=== PATIENT | male | born 1980 | race Caucasian/White ===

== ENCOUNTER 2019-12-20 00:45 | Emergency (ER) | payer SELFPAY ==
[2019-12-20 00:46] VITALS: PULSE 100; RESP 20; TEMP 36.7; O2SAT 94
--- NOTE | 2019-12-20 00:55 | ED.ASTHMA ---
HPI - Asthma General Chief Complaint: Asthma Stated Complaint: wheezing Time Seen by Provider: 12/20/19 00:48 Source: patient Mode of arrival: ambulatory Limitations: no limitations History of Present Illness HPI Narrative: A 39 y/o male presents to the ED with c/o asthma attack. Pt has a PMHx of asthma and states that he intermittently has issues with it. He recently just moved to [place], and he ran out of his inhaler and has not been able to refill it. Today he adds that he was in the cold air and it triggered and worsened his asthma. Pt reports SOB and wheezing, but denies rhinorrhea and sore throat. He is a smoker. complaint: asthma attack Onset (ago): hour(s) (Today) Context: ran out of meds Associated symptoms: other (SOB, wheezing) Asthma History: history of frequent attacks Related Data Allergies Allergy/AdvReac Type Severity Reaction Status Date / Time No Known Allergies Allergy Verified 12/20/19 01:01 Review of Systems Review of Systems: All systems reviewed & are unremarkable except as noted in HPI and below ENT: Denies nasal discharge and Denies sore throat Respiratory: Respiratory: Reports dyspnea and Reports wheezing [facility] Past Medical History Medical History (Updated 12/20/19 @ 01:32 by Kam Hayward DO) Asthma Surgical History Surgical History (Updated 12/20/19 @ 01:00 by Shari Wheeler) Surgical history unknown Social History Social History (Updated 12/20/19 @ 01:00 by Shari Wheeler) Smoking status: Current every day smoker Gender identity (if verbalized by the patient): Male Exam Narrative: Exam Narrative: APPEARANCE: No acute distress, nontoxic, resting in bed HEENT: Normocephalic, atraumatic OMM RESPIRATORY: No respiratory distress, wheezing throughout the bilateral lung vela, no rhonchi or rales CARDIOVASCULAR: Regular rate and rhythm without murmurs rubs or gallops. ABDOMINAL: Soft, nontender, nondistended, no rebound or guarding MUSCULOSKELETAl: Moves all extremities. No clubbing, cyanosis or edema. Bilateral calves soft and nontender NEURO: Awake and alert. Following commands, speech normal, no focal deficits SKIN:: Warm, dry. Normal Color PSYCHIATRIC: Normal affect/mood, Course Course Emergency Course: Following breathing treatment patient states he is feeling much better. Repeat lung exam clear to all station bilaterally. Patient states he does have a nebulizer machine at home but is out of albuterol for the nebulizer machine as well as inhaler Discussed with patient results of workup and diagnosis. Discussed need for follow-up with primary care, proper use of medication, and reasons to return to the emergency department. Patient understands and agrees to current treatment plan Vital Signs Vital signs: Vital Signs Temperature 98.1 F 12/20/19 00:46 Pulse Rate 100 12/20/19 00:46 Respiratory Rate 20 12/20/19 00:46 Pulse Oximetry 94 12/20/19 00:46 Temperature 98.1 F 12/20/19 00:46 Pulse Rate 77 12/20/19 01:20 Respiratory Rate 20 12/20/19 01:20 Pulse Oximetry 98 12/20/19 00:58 Discharge Plan Discharge Clinical Impression: Asthma with acute exacerbation Patient Disposition: Home, Self-Care Condition: Stable Instructions: Antibiotic Form, Asthma (ED) Additional Instructions: Return for increasing shortness of breath, fever or any other symptoms of concern Prescriptions: New prednisone 20 mg tablet 20 mg PO BID Qty: 8 RF: 0 albuterol sulfate 90 mcg/actuation HFA aerosol inhaler 2 puff INHALATION QID PRN (Reason: shortness of breath or wheezing) Qty: 6.7 RF: 0 albuterol sulfate 5 mg/mL solution for nebulization 5 mg INHALATION Q6H PRN (Reason: shortness of breath or wheezing) Qty: 20 RF: 0 Follow-up/Referrals: Nuha Ramírez MD [Physician] - (Follow-up in 1-2 days for further on-call physician treatment and evaluation) PHYSICIAN,CLIENT SERVICE AND CONSULTING MANAGER [Primary Care Provider] - Time of Disposition: 01:35
[2019-12-20 00:58] VITALS: O2SAT 98
[2019-12-20 01:10] VITALS: PULSE 90; RESP 20
[2019-12-20] MEDS: ALBUTEROL SULFATE NEB 2.5 MG/0.5 ML INH 5 MG INHALATION (01:12)
[2019-12-20] MEDS: predniSONE 20 MG TABLET 60 MG PO (01:12)
[2019-12-20] MEDS: IPRATROPIUM BR 0.02% INH SOLN 0.5 MG/2.5 ML VIAL INHALATION (01:13)
[2019-12-20 01:20] VITALS: PULSE 77; RESP 20
[2019-12-20 01:40] VITALS: BP 119/65; PULSE 97; RESP 15; O2SAT 93
== END 2019-12-20 01:40 | disposition home or self-care (01) ==
PROVIDERS: Emergency Provider Emergency Medicine
DX: J45.901 Unspecified asthma with (acute) exacerbation (principal); F17.200 Nicotine dependence, unspecified, uncomplicated
CPT/HCPCS: 94640; 99283; J7512

== ENCOUNTER 2019-12-27 16:43 | Emergency (ER) | payer SELFPAY ==
--- NOTE | ~2019-12-27 | XR_ITS ---
EXAMINATION: XR ankle LT min 3V DATE: 12/27/2019 17:03 INDICATION: Lateral left ankle pain post injury TECHNIQUE: Anteroposterior, oblique, mortise, and lateral views of the left ankle were obtained. COMPARISON: None. FINDINGS: There is an oblique fracture through the distal fibula with a fracture plane exiting medially at the level of the tibiotalar joint. There is one cortical width lateral displacement. No other fracture i dentified. Specifically the medial and posterior malleoli as well as the talar dome are intact. Ank le mortise remains congruent. Soft tissue swelling overlying the lateral malleolus. No ankle joint ef fusion. IMPRESSION: 1. Minimally displaced oblique fracture of the distal left fibula consistent with a Chawla type B inju ry pattern. Reviewed, dictated and finalized at location A. CRACKER OPERATOR IMPRESSION: 1. Minimally displaced oblique fracture of the distal left fibula consistent wi th a Chawla type B injury pattern.
[2019-12-27 16:53] VITALS: BP 130/84; PULSE 95; RESP 20; TEMP 37; O2SAT 96
--- NOTE | 2019-12-27 17:04 | ED.LOWEXIN ---
HPI - Extremity Injury (Lower) General Chief Complaint: Extremity Injury, Lower Stated Complaint: left ankle injury Time Seen by Provider: 12/27/19 17:05 Source: patient Mode of arrival: ambulatory Limitations: no limitations History of Present Illness HPI Narrative: Brandyn Aguirre is a 39 yo male with PMH of asthma who fell on a skateboard and twisted left ankle. Lateral swelling at the base of the ankle joint, able to move toes, some ecchymosis and a small abrasion on the medial side. Happened an hour ago Related Data Home Medications Medication Instructions Recorded Confirmed albuterol sulfate 12/27/19 prednisone 12/27/19 Allergies Allergy/AdvReac Type Severity Reaction Status Date / Time No Known Allergies Allergy Unverified 06/12/19 19:58 Review of Systems Review of Systems: Narrative: CONSTITUTIONAL: Denies fever, chills, sweats. EYES: Denies visual changes, redness, discharge. ENT: Denies rhinorrhea, congestion, sore throat, otalgia. CARDIOVASCULAR: Denies chest pain, palpitations, edema. RESPIRATORY: Denies dyspnea, wheezing, cough GASTROINTESTINAL: Denies abdominal pain, nausea, vomiting, diarrhea. GENITOURINARY: Denies dysuria, hematuria, abnormal discharge SKIN: Denies rash or itching. NEUROLOGIC: Denies numbness, or focal weakness. Extremity: Left ankle swelling and pain with bruising PSYCHIATRIC: Denies anxiety or depression. [facility] Family History Family History (Updated 12/27/19 @ 17:17 by Kristina Barrett CNP) Other No active medical problems Social History Social History Smoking status: Current every day smoker Alcohol intake: current Alcohol use details: Drinks more than socially Comments At time of signature, I agree with nursing past medical, surgical, social and family history. There is no relevant family history pertinent to the presenting complaint. Exam Narrative: Exam Narrative: GENERAL: This is a well-nourished, well-developed patient, in moderate distress. HEAD: normocephalic, atraumatic. Did not hit head EYES: Sclera clear/white. Vision is grossly intact. EARS: External ears normal, Hearing grossly intact. NOSE: External nose normal with no obvious nasal discharge, nares without redness, no rhinorrhea. THROAT: Mucous membranes moist, NECK: Neck supple, non-tender CARDIOVASCULAR: Regular rate and rhythm without murmurs, gallops, or rubs. RESPIRATORY: Clear to auscultation. Breath sounds equal bilaterally. No wheezes, rales, or rhonchi. GASTROINTESTINAL: Abdomen soft, SKIN: warm, intact with no suspicious lesions or rash, good texture and turgor. Abrasion medial side left ankle NEURO: awake, alert, and oriented to person, place and time. There were no obvious focal neurologic abnormalities. Steady gait EXTREMITIES: Limited range of motion of left ankle. Tender to touch. Swelling on lateral side of ankle. Skin warm, pedal pulse, good cap refill BACK: Nontender without deformity or crepitance. . Course Course Emergency Course: X-ray left ankle findings include a minimally displaced oblique fracture of distal left fibula Chawla type II Placed in OCL and on crutches, follow-up with orthopedic Vital Signs Vital signs: Vital Signs Temperature 98.6 F 12/27/19 16:53 Pulse Rate 95 12/27/19 16:53 Respiratory Rate 12/27/19 16:53 Blood Pressure 130/84 12/27/19 16:53 Pulse Oximetry 96 12/27/19 16:53 Temperature 98.6 F 12/27/19 16:53 Pulse Rate 95 12/27/19 16:53 Respiratory Rate 12/27/19 16:53 Blood Pressure 130/84 12/27/19 16:53 Pulse Oximetry 96 12/27/19 16:53 MDM - Extremity Injury (Lower) Differential Diagnosis Differential diagnosis: Likely ankle sprain and strain, fracture of toe, ankle fracture and other Discharge Plan Discharge Clinical Impression: Closed fracture of fibula Qualifiers: Encounter type: initial encounter Fibula location: distal F
== END 2019-12-27 17:59 | disposition home or self-care (01) ==
PROVIDERS: Emergency Provider Nurse Practitioner
DX: S82.832A Other fracture of upper and lower end of left fibula, initial encounter for closed fracture (principal); V00.131A Fall from skateboard, initial encounter; F17.200 Nicotine dependence, unspecified, uncomplicated; J45.909 Unspecified asthma, uncomplicated
CPT/HCPCS: 29515; 73610; 99213; 99214; G0463

== ENCOUNTER 2020-08-09 11:13 | Emergency (ER) | payer SELFPAY ==
[2020-08-09 11:22] VITALS: BP 137/88; PULSE 88; RESP 18; TEMP 36.4; O2SAT 99
--- NOTE | 2020-08-09 11:25 | ED.URI ---
HPI - URI/Sore Throat General Chief Complaint: Upper Respiratory Infection Stated Complaint: sore throat Source: patient Limitations: no limitations History of Present Illness HPI Narrative: The patient, previously mostly healthy smoker/drinker, presents with sore throat. Patient notes about 1/2-week history of somewhat left sore throat, measured fever to 100.2 associated radiating pain up to his left ear. No cough, loss of taste or smell, actual ear tenderness, sick contacts, N/V/D, recent travel, rash, S OB, sneezing/wheezing, CP. He had preceding right-sided throat discomfort the previous weekend which improved; he was requests refill of inhalers Related Data Allergies Allergy/AdvReac Type Severity Reaction Status Date / Time No Known Allergies Allergy Verified 08/09/20 11:27 Review of Systems Review of Systems: Narrative: General/Constitutional: No weight loss,REPORTS fever Eyes: N0: Redness,discharge Ears/Nose/Throat: No: Epistaxis,ear discharge Respiratory: Denies: Hemoptysis Gastrointestinal: No Vomiting, Bleeding-rectal Skin: No Lumps, eruption PMFSH Past Medical History Medical History (Updated 08/09/20 @ 11:25 by Ryan Mendez MD) Asthma Surgical History Surgical History (Updated 01/01/20 @ 10:57 by Sherri Matias) Surgical history unknown Family History Family History (System 01/01/20 @ 10:57 by Sherri Matias) Other No active medical problems Social History Social History (System 01/01/20 @ 10:57 by Sherri Matias) Smoking status: Current every day smoker Alcohol intake: current Gender identity (if verbalized by the patient): Male Comments At time of signature, agree with nursing past medical, surgical, social and family history. There is no relevant family history pertinent to the presenting complaint Exam Narrative: Exam Narrative: General Appearance: Well appearing,, Conjunctiva clear Nose: Rhinorrhea, Mucousal erythema Mouth/Throat: MM moist, Uvula midline, Pharyngeal erythema w/o exudate Neck: Supple, No adenopathy Respiratory: No respiratory distress, airway patent Musculoskeletal: Warm/dry Normal strength Neurological: A&O x3, Normal affect Course Vital Signs Vital signs: Vital Signs Temperature 97.5 F L 08/09/20 11:22 Pulse Rate 88 08/09/20 11:22 Respiratory Rate 18 08/09/20 11:22 Blood Pressure 137/88 08/09/20 11:22 Pulse Oximetry 99 08/09/20 11:22 Temperature 97.5 F L 08/09/20 11:22 Pulse Rate 88 08/09/20 11:22 Respiratory Rate 18 08/09/20 11:22 Blood Pressure 137/88 08/09/20 11:22 Pulse Oximetry 99 08/09/20 11:22 Discharge Plan Discharge Clinical Impression: Pharyngitis Qualifiers: Pharyngitis/tonsillitis etiology: unspecified etiology Qualified Code(s): J02.9 - Acute pharyngitis, unspecified Patient Disposition: Home, Self-Care Condition: Stable Instructions: Antibiotic Form, Pharyngitis (ED) Prescriptions: New azithromycin 250 mg tablet See Rx Instructions .ROUTE .COMPLEX Qty: 6 RF: 0 Lidocaine Viscous 2 % solution 5 ml MUCOUS MEM QID PRN (Reason: pain) Qty: 100 RF: 0 albuterol sulfate [Ventolin HFA] 90 mcg/actuation HFA aerosol inhaler 2 puff INHALATION QID PRN (Reason: shortness of breath or wheezing) Qty: 1 RF: 1 No Action albuterol sulfate 90 mcg/actuation HFA aerosol inhaler 2 puff INHALATION QID PRN (Reason: shortness of breath or wheezing) Qty: 6.7 RF: 0 Other Ambulatory Orders: SARS-CoV-2 RNA, Qual RT-PCR (Routine) Location: Determined by Patient Ordered By: Ryan Mendez Follow-up/Referrals: PHYSICIAN,CONCRETE PUMP OPERATOR HELPER [Primary Care Provider] -
== END 2020-08-09 11:40 | disposition home or self-care (01) ==
PROVIDERS: Emergency Provider Emergency Medicine
DX: J02.9 Acute pharyngitis, unspecified (principal); Z20.828 Contact with and (suspected) exposure to other viral communicable diseases; F17.200 Nicotine dependence, unspecified, uncomplicated; J45.909 Unspecified asthma, uncomplicated
CPT/HCPCS: 99213; G0463

== ENCOUNTER 2020-08-10 06:45 | Outpatient (NON) | payer OTHER, SELFPAY ==
[2020-08-10 19:00] LABS: SARS-CoV-2 RNA PCR Negative
== END 2020-08-10 06:46 ==
PROVIDERS: Visit Provider Emergency Medicine
DX: Z20.828 Contact with and (suspected) exposure to other viral communicable diseases (principal); J02.9 Acute pharyngitis, unspecified
CPT/HCPCS: 87635; C9803; U0003

== ENCOUNTER 2020-10-24 15:36 | Emergency (ER) | payer SELFPAY ==
--- NOTE | 2020-10-24 15:39 | ED.URI ---
HPI - URI/Sore Throat General Chief Complaint: Upper Respiratory Infection Stated Complaint: upper respiratory infection Time Seen by Provider: 10/24/20 15:39 Source: patient and RN notes reviewed Mode of arrival: ambulatory Limitations: no limitations History of Present Illness HPI Narrative: 40-year-old male presents concern for sore throat, fever, body aches. Reports he was treated with azithromycin approximately a month ago for the same symptoms, his symptoms never fully resolved. He reports he has been taking Tylenol ibuprofen. Reports he has and albuterol inhaler for which he needs a refill, denies current wheezing, cough, shortness of breath. MD elicited complaint: sore throat Related Data Allergies Allergy/AdvReac Type Severity Reaction Status Date / Time No Known Allergies Allergy Verified 08/09/20 11:27 Review of Systems Review of Systems: Narrative: CONSTITUTIONAL: Denies malaise, chills, sweats, or fever. EYES: Denies visual changes, redness, or discharge. ENT: Denies rhinorrhea, congestion, sinus pain, otalgia. Reports sore throat. CARDIOVASCULAR: Denies chest pain, palpitations, or edema. RESPIRATORY: Denies cough or dyspnea. GASTROINTESTINAL: Denies abdominal pain, nausea, vomiting, diarrhea SKIN: Denies rash or itching. MUSCULOSKELETAL: Denies myalgia. NEUROLOGIC: Denies headache. All systems reviewed & are unremarkable except as noted in HPI and below PMFSH Past Medical History Medical History (Updated 10/24/20 @ 15:53 by Sis Soliz NP) Asthma Surgical History Surgical History (Updated 01/01/20 @ 10:57 by Sherri Matias) Surgical history unknown Family History Family History (System 01/01/20 @ 10:57 by Sherri Matias) Other No active medical problems Social History Social History (System 01/01/20 @ 10:57 by Sherri Matias) Smoking status: Current every day smoker Alcohol intake: current Gender identity (if verbalized by the patient): Male Comments At time of signature, agree with nursing past medical, surgical, social and family history. There is no relevant family history pertinent to the presenting complaint Exam Narrative: Exam Narrative: GENERAL: Well-appearing, well-nourished, and in no acute distress. HEAD: Normocephalic EYES: PERRLA, conjunctivae clear ENT: Nares clear, turbinates pink, discharge. Mucous membranes moist. TM pearly skinner with sharp light reflex bilaterally; no tragal tenderness. Oropharynx erythematous without lesions. Tonsils enlarged with copious exudate, no drooling, no hoarseness, no trismus, uvula midline. NECK: Supple. No lymphadenopathy CHEST: Clear to auscultation, breath sounds equal. No wheezing, rhonchi, rales, or stridor. No respiratory distress, speaks in full sentences. HEART: Regular rate and rhythm. No murmur heard. SKIN: Warm, dry, no rash. NEURO: Alert and oriented x3. PSYCH: Normal mood and affect Course Course Emergency Course: Patient is aware of diagnosis, understands and agrees to treatment plan. Anticipatory guidance given. Patient agrees to follow-up as directed and is aware of reasons to seek care at the emergency department. Portions of this record may have been created with voice recognition software Vital Signs Vital signs: Vital Signs Temperature 98.9 F 10/24/20 15:42 Pulse Rate 89 10/24/20 15:42 Respiratory Rate 20 10/24/20 15:42 Blood Pressure 136/64 10/24/20 15:42 Pulse Oximetry 98 10/24/20 15:42 Temperature 98.9 F 10/24/20 15:42 Pulse Rate 89 10/24/20 15:42 Respiratory Rate 20 10/24/20 15:42 Blood Pressure 136/64 10/24/20 15:42 Pulse Oximetry 98 10/24/20 15:42 Reviewed. MDM - URI/Sore Throat MDM Narrative Medical decision making narrative: Differential diagnosis considered: Jose virus, strep pharyngitis, allergic rhinitis, upper respiratory tract infection, sinusitis, rhinosinusitis, nasopharyngitis. viral pharyngitis, otitis media, otitis externa
[2020-10-24 15:42] VITALS: BP 136/64; PULSE 89; RESP 20; TEMP 37.2; O2SAT 98
== END 2020-10-24 16:03 | disposition home or self-care (01) ==
PROVIDERS: Emergency Provider Nurse Practitioner
DX: J02.0 Streptococcal pharyngitis (principal); F17.200 Nicotine dependence, unspecified, uncomplicated; J45.909 Unspecified asthma, uncomplicated
CPT/HCPCS: 87804; 87880; 99213; G0463

== ENCOUNTER 2020-11-22 16:06 | Emergency (ER) | payer SELFPAY ==
--- NOTE | 2020-11-22 16:13 | ED.URI ---
HPI - URI/Sore Throat General Chief Complaint: Upper Respiratory Infection Stated Complaint: sore throat Time Seen by Provider: 11/22/20 16:13 Source: patient and RN notes reviewed Mode of arrival: ambulatory Limitations: no limitations History of Present Illness HPI Narrative: 40 yo male present to [facility] care with C/O sore throat. Had similar symptoms a month ago and 2 months ago. Has recently been treated for strep throat. Has not followed up with ENT or primary care provider. Denies fevers. Related Data Allergies Allergy/AdvReac Type Severity Reaction Status Date / Time No Known Allergies Allergy Verified 08/09/20 11:27 Review of Systems Review of Systems: Narrative: CONSTITUTIONAL: Denies fever, chills, or sweats. EYES: Denies visual changes, redness, or discharge. ENT: Denies rhinorrhea, congestion, or otalgia. Reports sore throat CARDIOVASCULAR: Denies chest pain, palpitations, or edema. RESPIRATORY: Denies cough or dyspnea. GASTROINTESTINAL: Denies abdominal pain, nausea, vomiting, or diarrhea. GENITOURINARY: Denies dysuria or hematuria. SKIN: Denies rash or itching. MUSCULOSKELETAL: Denies back pain, joint pain, or myalgia. NEUROLOGIC: Denies headache, numbness, or weakness. PSYCHIATRIC: Denies anxiety or depression. All other systems reviewed are negative, except as documented in HPI. PMFSH Past Medical History Medical History Asthma Surgical History Surgical History Surgical history unknown Family History Family History Other No active medical problems Social History Social History Smoking status: Current every day smoker Alcohol intake: current Gender identity (if verbalized by the patient): Male Comments At the time of my signature, I reviewed and agree with the nursing past medical, surgical, social, and family history. There is no relevant family history pertinent to the patient complaint. Exam Narrative: Exam Narrative: GENERAL: This is a well-nourished, well-developed patient, in no apparent distress. HEAD: normocephalic, atraumatic. EYES: PERRL. Sclera clear/white. Vision is grossly intact. EARS: External ears normal, auditory canals clear and without drainage, TMs normal without perforation. Hearing grossly intact. NOSE: External nose normal with no obvious nasal discharge, nares without redness, no rhinorrhea. THROAT: Mucous membranes moist. Posterior pharynx red. Oral tonsils +2 with large amount of exudate and erythema. NECK: Neck supple, non-tender with lymphadenopathy. no masses or thyromegaly. CARDIOVASCULAR: Regular rate and rhythm without murmurs, gallops, or rubs. RESPIRATORY: Clear to auscultation. Breath sounds equal bilaterally. No wheezes, rales, or rhonchi. GASTROINTESTINAL: Abdomen soft, non-tender, nondistended. SKIN: warm, intact with no suspicious lesions or rash, good texture and turgor. NEURO: awake, alert, and oriented to person, place and time. There were no obvious focal neurologic abnormalities. Course Vital Signs Vital signs: Vital Signs Temperature 98.3 F 11/22/20 16:22 Pulse Rate 101 H 11/22/20 16:22 Respiratory Rate 20 11/22/20 16:22 Blood Pressure 132/72 11/22/20 16:22 Pulse Oximetry 98 11/22/20 16:22 Temperature 98.3 F 11/22/20 16:22 Pulse Rate 101 H 11/22/20 16:22 Respiratory Rate 20 11/22/20 16:22 Blood Pressure 132/72 11/22/20 16:22 Pulse Oximetry 98 11/22/20 16:22 Reviewed, MDM - URI/Sore Throat Differential Diagnosis Differential diagnosis: Likely upper respiratory infection, otitis media, sinusitis, viral infection, bronchitis, influenza, pharyngitis and other (Strep throat) Lab Data Attestation: I reviewed the patient's lab results. Labs: Strep Screen Positive Group A Strep
[2020-11-22 16:22] VITALS: BP 132/72; PULSE 101; RESP 20; TEMP 36.8; O2SAT 98
== END 2020-11-22 16:29 | disposition home or self-care (01) ==
PROVIDERS: Emergency Provider Nurse Practitioner
DX: J02.0 Streptococcal pharyngitis (principal); J45.909 Unspecified asthma, uncomplicated
CPT/HCPCS: 87880; 99213; G0463

== ENCOUNTER 2021-01-13 21:02 | Emergency (ER) | payer SELFPAY ==
[2021-01-13 21:04] VITALS: BP 130/97; PULSE 105; RESP 16; TEMP 35.8; O2SAT 100
--- NOTE | 2021-01-13 21:24 | ED.GENADULT ---
HPI - General Adult General Chief complaint: Dental/Oral Stated complaint: tooth busted open Time Seen by Provider: 01/13/21 21:03 Source: patient Mode of arrival: ambulatory Limitations: no limitations History of Present Illness HPI narrative: Patient is a 40-year-old male who presents with tenderness to the right lower posterior molar noting aching pain with some drainage with history of dental infections patient has recently moved back to the area. Patient does not have a dentistry appointment established. Patient denies any fever chills nausea vomiting Related Data Home Medications Medication Instructions Recorded Confirmed albuterol sulfate INHALATION 01/13/21 Allergies Allergy/AdvReac Type Severity Reaction Status Date / Time No Known Allergies Allergy Verified 01/13/21 21:10 Review of Systems Review of Systems: All systems reviewed & are unremarkable except as noted in HPI and below PMFSH Past Medical History Medical History (Updated 01/13/21 @ 21:30 by Austyn Rojas PA-C) Asthma Surgical History Surgical History Surgical history unknown Family History Family History Other No active medical problems Social History Social History Smoking status: Current every day smoker Alcohol intake: current Gender identity (if verbalized by the patient): Male Exam Narrative: Exam Narrative: GENERAL: Well-appearing, well-nourished, and in no acute distress. HEAD: Normocephalic, atraumatic. EYES: PERRLA and EOMI. ENT: Nares clear, no rhinorrhea or epistaxis. Mucous membranes moist. Gross dental caries floor the mouth soft no space-occupying lesions. Uvula midline no trismus or drooling CHEST: Clear to auscultation. No respiratory distress. No wheezes rales or rhonchi HEART: Regular rate and rhythm. No murmur heard. Normal peripheral pulses. ABDOMEN: Soft, nontender, nondistended EXTREMITIES: Normal range of motion. No edema. SKIN: Warm, dry, no rash. NEURO: No focal deficits. Alert and oriented x3. Cranial nerves II through XII grossly intact PSYCH: Normal mood and affect. Course Course Emergency Course: Patient in the room in no distress aware of case findings treatment plan diagnosis Vital Signs Vital signs: Vital Signs Temperature 96.4 F L 01/13/21 21:04 Pulse Rate 105 H 01/13/21 21:04 Respiratory Rate 16 01/13/21 21:04 Blood Pressure 130/97 H 01/13/21 21:04 Pulse Oximetry 100 01/13/21 21:04 Temperature 96.4 F L 01/13/21 21:04 Pulse Rate 105 H 01/13/21 21:04 Respiratory Rate 16 01/13/21 21:04 Blood Pressure 130/97 H 01/13/21 21:04 Pulse Oximetry 100 01/13/21 21:04 Medical Decision Making MDM Narrative Medical decision making narrative: Paitents pain and complaint coupled with physical findings are consistant with dentalgia. There are no focal signs of space occupying lesions that are compromising to the ariway. The floor of the mouth is soft with no signs of Ludwigs Angina. Patient is without trismus or drooling and able to swallow secreations. Patient is felt appropriate for discharge home with dental follow up. Vital Signs Vital Signs: Vital Signs Temperature 96.4 F L 01/13/21 21:04 Pulse Rate 105 H 01/13/21 21:04 Respiratory Rate 16 01/13/21 21:04 Blood Pressure 130/97 H 01/13/21 21:04 Pulse Oximetry 100 01/13/21 21:04 Temperature 96.4 F L 01/13/21 21:04 Pulse Rate 105 H 01/13/21 21:04 Respiratory Rate 16 01/13/21 21:04 Blood Pressure 130/97 H 01/13/21 21:04 Pulse Oximetry 100 01/13/21 21:04 Discharge Plan Discharge Clinical Impression: Dental caries Patient Disposition: Home, Self-Care Condition: Stable Instructions: Antibiotic Form Additional Instructions: Follow-up with dentistry first thing tomorrow to set up for reevalua
== END 2021-01-13 21:45 | disposition home or self-care (01) ==
PROVIDERS: Emergency Provider Emergency Medicine
DX: K02.9 Dental caries, unspecified (principal); J45.909 Unspecified asthma, uncomplicated; F17.200 Nicotine dependence, unspecified, uncomplicated
CPT/HCPCS: 99283

== ENCOUNTER 2023-07-23 06:33 | Emergency (ER) | payer OTHER, SELFPAY ==
[2023-07-23] VITALS (9 sets, daily range): BP systolic 144–178; BP diastolic 93–118; PULSE 87–96; RESP 11–24; O2SAT 97–100
--- NOTE | ~2023-07-23 | CT_ITS ---
EXAMINATION: CT abdomen pelvis wo con DATE: 07/23/2023 07:30 INDICATION: Left lower quadrant abdominal pain. Hematuria. TECHNIQUE: Computed tomography (CT) of the abdomen and pelvis was performed without intravenous contr ast. Automated exposure control and iterative reconstruction technique were employed. The dose-length product was 1024.52 mGy-cm. COMPARISON: None. FINDINGS: The visualized portions of the lung bases demonstrate mild atelectasis. No pleural effusion . The heart size is normal. No pericardial effusion. There is diffuse hepatic steatosis. The gallblad esau, spleen, pancreas, adrenal glands, and right kidney are normal. There are 5 mm and 2 mm stones in left kidney. There is mild left hydronephrosis and hydroureter. There is a 2 mm stone in distal left ureter. There are bilateral inguinal hernias containing fat. There are no dilated loops of bowel. Th e appendix is normal. There are no pathologically enlarged lymph nodes. There is no free intraperiton eal fluid. There is mild lumbar spondylosis. IMPRESSION: 1. 2 mm stone in distal left ureter with mild left hydronephrosis and hydroureter. 2. Nonobstructing left kidney stones. 3. Diffuse hepatic steatosis. 4. Bilateral inguinal hernias containing fat. Reviewed, dictated and finalized at location A. IMPRESSION: 1. 2 mm stone in distal left ureter with mild left hydronephrosis and hydrouret er. 2. Nonobstructing left kidney stones. 3. Diffuse hepatic steatosis. 4. Bilateral inguinal hernias containing fat.
[2023-07-23 06:59] LABS: Basophils Absolute Auto 0.1 K/mm3 (0.0-0.1); Basophils Percent Auto 1.6 % (0.2-1.2); Eosinophils Absolute Auto 0.6 K/mm3 (0-0.3); Eosinophils Percent Auto 7.6 % (0-4.4); Hemoglobin 16.8 g/dL (14.0-18.0); Immature Granulocyte Percent A 1.3 % (0-0.5); Lymphocytes Absolute Auto 2.82 K/mm3 (0.9-3.2); Lymphocytes Percent Auto 36.9 % (18.3-44.2); Mean Corpuscular HGB Conc 34.3 g/dl (32-36); Mean Corpuscular Hemoglobin 34.7 pg (26-34); Mean Corpuscular Volume 101.2 fl (80-100); Mean Platelet Volume 9.6 fl (7.4-10.4); Monocytes Absolute Auto 1.1 K/mm3 (0.1-0.6); Monocytes Percent Auto 14.9 % (2.6-8.5); Neutrophils Absolute Auto 2.9 K/mm3 (1.3-6.7); Neutrophils Percent Auto 37.7 % (45.5-73.1); Platelet Count Result 248 k/mm3 (150-375); Red Blood Count 4.84 M/mm3 (4.6-6.20); Red Cell Distribution Width 13.7 % (11.5-14.5); White Blood Count 7.7 K/mm3 (4.5-10.0)
[2023-07-23 07:09] LABS: Alanine Aminotransferase 181 U/L (6-50); Albumin Level 4.3 g/dL (3.5-5.1); Alkaline Phosphatase 132 U/L (38-126); Anion Gap 7 mmol/L (8-16); Aspartate Amino Transferase 149 U/L (17-59); Bilirubin,Total 0.4 mg/dL (0.2-1.3); Blood Urea Nitrogen 11 mg/dL (9-20); Calcium 8.6 mg/dL (8.4-10.2); Carbon Dioxide 27 mmol/L (22-30); Chloride 103 mmol/L (98-107); Estimated CRCL calculation 118 ml/min; Estimated Glomerular Filt Rate > 60; Glucose 121 mg/dL (65-110); Lipase 156 U/L (23-300); Potassium 3.7 mmol/L (3.4-5.0); Sodium 137 mmol/L (137-145)
[2023-07-23 07:10] LABS: Appearance Urine Cloudy (Clear); Bacteria Urine None Seen /hpf; Bilirubin Urine 1+ (Negative); Blood Urine 3+ (Negative); Color Urine Dark Yellow (Yellow); Glucose Urine UA Negative (Negative); Ketones Urine Trace mg/dL (Negative); Leukocyte Esterase Ur 1+ LEU/UL (Negative); Need Manual Microscopic Reviewed; Nitrate Urine Negative (Negative); Protein Urine 2+ mg/dL (Negative); RBC Urine >100 /hpf (0-2); Specific Grav Ur 1.031 (1.001-1.035); Squamous Epithelial Cell Urine Occasional /hpf (Few); pH Urine 5.5 (5.0-9.0)
[2023-07-23 07:11] LABS: Add Urine Microscopic? YES
[2023-07-23] MEDS: HYDROmorphone HCL INJ (*CRX) 1 MG/ML SYR IV PUSH (07:11)
--- NOTE | 2023-07-23 07:11 | PC.NURSE ---
Patient care report given to ASHLEE Kirby. All questions answered at this time and care turned over to ASHLEE Kirby.
[2023-07-23] MEDS: ONDANSETRON INJ 4 MG/2 ML VIAL IV PUSH (07:12)
--- NOTE | 2023-07-23 07:16 | ED.GENADULT ---
HPI - General Adult General Chief complaint: Abdominal Pain Stated complaint: abdominal pain Time Seen by Provider: 07/23/23 06:55 History of Present Illness HPI narrative: 43-year-old male presented to the emergency department for evaluation of left flank and left lower quadrant pain that started at approximately 5 AM this morning. Patient has no prior history of kidney stones or diverticulitis. Patient denies any chest pain shortness of breath. Patient has not had any nausea or vomiting. Patient states he has had some dark-colored urine. Related Data Home Medications Medication Instructions Recorded Confirmed albuterol sulfate 90 mcg/actuation inhalation 01/13/21 aerosol inhaler Allergies Allergy/AdvReac Type Severity Reaction Status Date / Time No Known Allergies Allergy Verified 07/23/23 06:40 Review of Systems Review of Systems: All systems reviewed & are unremarkable except as noted in HPI and below [facility] Past Medical History Medical History (Updated 07/23/23 @ 09:00 by Aydin Chen MD) Asthma Surgical History Surgical History Surgical history unknown Family History Family History Other No active medical problems Social History Social History Smoking status: Current every day smoker Alcohol intake: current Alcohol use details: Drinks more than socially Gender identity (if verbalized by the patient): Male Exam Narrative: APPEARANCE: Distressed due to left flank and left lower quadrant pain HEAD: normocephalic, atraumatic. EYES: PERRLA/EOMI, conjunctivae clear. NOSE: Normal no drainage NECK: Supple. No adenopathy, no masses. RESPIRATORY: Airway patent, respirations nonlabored. Clear to auscultation bilaterally, no rales, rhonchi, wheezing. CARDIOVASCULAR: Regular rate and rhythm without murmurs rubs or gallops. ABDOMINAL: No reproducible left flank or left lower quadrant tenderness to palpation MUSCULOSKELETAL: Moves all extremities. Strength/ROM intact, No edema, No calf tenderness. NEURO: Alert. Cranial nerves II through XII intact. Grossly intact SKIN: Warm, dry. Normal Color Course Course Emergency Course: 43-year-old male presented ED for evaluation of left flank and left lower quadrant pain. Patient was afebrile with no leukocytosis and a stable hemoglobin. Patient's creatinine clearance is normal with moderate elevations of AST ALT and alk phos, no elevation in T. bili. Patient had no right upper quadrant tenderness to palpation. UA did have trace ketones blood and some white blood cells. Patient's UA and physical exam are concerning for kidney stones. CT scan without contrast was ordered to further evaluate. Patient was treated with IV fluids, IV Zofran and IV Dilaudid. CT scan did show a 2 mm nonobstructing ureteral calculi on the left distal ureter. Patient was updated on the results of the work-up and plan for treatment and follow-up for home. Patient was started on Flomax in the ED. Patient will be discharged home with Zofran, Flomax and [place] for pain control along with follow-up with urology. All questions concerns were addressed and patient and family were comfortable to plan with discharge and close follow-up. Vital Signs Vital signs: Vital Signs Pulse Rate 87 07/23/23 06:36 Respiratory Rate 22 H 07/23/23 06:36 Pulse Oximetry 99 07/23/23 06:36 Pulse Rate 92 07/23/23 09:11 Respiratory Rate 24 H 07/23/23 09:11 Blood Pressure 144/93 H 07/23/23 09:11 Pulse Oximetry 97 07/23/23 09:11 Oxygen Delivery Room Air 07/23/23 06:37 Medical Decision Making Differential Diagnosis Differential Diagnosis: Appendicitis, colitis, diverticulitis, urinary tract infection, urinary retention, ureteral calculi Vital Signs Vital Signs: Vital Signs Pulse Rate
--- NOTE | 2023-07-23 07:23 | PC.NURSE ---
Pt to CT via stretcher at this time
[2023-07-23] MEDS: KETOROLAC 15 MG/ML VIAL (*BKC) IV PUSH ×2 (07:50→09:06)
[2023-07-23] MEDS: TAMSULOSIN HCL 0.4 MG CAPSULE PO (08:31)
== END 2023-07-23 09:20 | disposition home or self-care (01) ==
PROVIDERS: Emergency Medicine; Emergency Provider Emergency Medicine
DX: N20.1 Calculus of ureter (principal); J45.909 Unspecified asthma, uncomplicated
CPT/HCPCS: 36415; 74176; 80053; 81001; 83690; 85025; 87086; 96374; 96375; 99284; A9270; J1170; J1885; J2405

== ENCOUNTER 2023-07-28 18:47 | Emergency (ER) | payer OTHER, SELFPAY ==
--- NOTE | ~2023-07-28 | CT_ITS ---
EXAMINATION: CT abdomen pelvis wo con DATE: 07/28/2023 21:36 INDICATION: L sided abd pain, recent stone TECHNIQUE: Computed tomography (CT) of the abdomen and pelvis was performed without intravenous contr ast. Automated exposure control and iterative reconstruction technique were employed. The dose-length product was 1033.81 mGy-cm. COMPARISON: 07/23/2023. FINDINGS: Lower thorax: Unremarkable Liver: Mild hepatomegaly. Diffuse fatty infiltration. Biliary/Gallbladder: Gallbladder is normal. No bile duct dilation. Pancreas: No mass or duct dilation. Spleen: Normal. Adrenals:No mass. Kidneys: Mild left perinephric stranding. 3 mm left lower pole nonobstructing calcification. Addition al punctate calcifications are noted in the right kidney. Mild pelviectasis, caliectasis, and uretere ctasis on the left. The right kidney is normal. GI tract: No small or large bowel dilation. Normal appendix. Mesentery/Peritoneum: No ascites, mass, or free air. Retroperitoneum: No mass. Pelvis: Mild wall thickening of the urinary bladder. Mild prostatomegaly with calcification. 2 mm alma cification in the left UVJ. Soft Tissues: Uncomplicated small fat-containing umbilical and bilateral inguinal hernias. Bones: No acute osseous finding. IMPRESSION: Mild hepatomegaly with steatosis. 2 mm left UVJ stone causing mild obstructive uropathy, not significantly changed since the prior stud y. Cystitis versus chronic urinary bladder wall thickening from outlet obstruction. Reviewed, dictated and finalized at location K. IMPRESSION: Mild hepatomegaly with steatosis. 2 mm left UVJ stone causing mild obstructive uropathy, not significantly change d since the prior study. Cystitis versus chronic urinary bladder wall thickening from outlet obstruction .
[2023-07-28 20:06] LABS: Basophils Absolute Auto 0.1 K/mm3 (0.0-0.1); Basophils Percent Auto 0.9 % (0.2-1.2); Eosinophils Absolute Auto 0.3 K/mm3 (0-0.3); Eosinophils Percent Auto 2.1 % (0-4.4); Hematocrit 47.6 % (42.0-52.0); Hemoglobin 16.6 g/dL (14.0-18.0); Immature Granulocyte Absolute 0.08 K/mm3 (0.00-0.031); Immature Granulocyte Percent A 0.7 % (0-0.5); Lymphocytes Absolute Auto 1.81 K/mm3 (0.9-3.2); Lymphocytes Percent Auto 14.7 % (18.3-44.2); Mean Corpuscular HGB Conc 34.9 g/dl (32-36); Mean Corpuscular Hemoglobin 34.2 pg (26-34); Mean Corpuscular Volume 98.1 fl (80-100); Mean Platelet Volume 9.5 fl (7.4-10.4); Monocytes Absolute Auto 1.4 K/mm3 (0.1-0.6); Monocytes Percent Auto 11.2 % (2.6-8.5); Neutrophils Absolute Auto 8.7 K/mm3 (1.3-6.7); Neutrophils Percent Auto 70.4 % (45.5-73.1); Platelet Count Result 257 k/mm3 (150-375); Red Blood Count 4.85 M/mm3 (4.6-6.20); Red Cell Distribution Width 13.7 % (11.5-14.5); White Blood Count 12.3 K/mm3 (4.5-10.0)
--- NOTE | 2023-07-28 20:12 | ED.MALEGU ---
HPI - Male Genitourinary General Chief complaint: Urogenital-Male Stated complaint: flank pain Time Seen by Provider: 07/28/23 19:15 Source: patient and old records reviewed Mode of arrival: ambulatory Limitations: no limitations History of Present Illness HPI Narrative: Patient is a 43-year-old male who presents ED with report of left-sided abdominal pain. Patient reports he was seen in the ED here on 07/23 and diagnosed with a 2 mm distal left-sided ureteral stone. He believes he passed this within the last day or 2 and saw it in the urine strainer. Today, patient began having pain in his left-sided abdomen and left lower back again. He tried taking pain medicine and ibuprofen at home without relief. He is unsure if he is passing another stone. He denies any nausea or vomiting, diarrhea, constipation, hematuria, dysuria, fevers. Related Data Home Medications Medication Instructions Recorded Confirmed albuterol sulfate 90 mcg/actuation inhalation 01/13/21 aerosol inhaler Allergies Allergy/AdvReac Type Severity Reaction Status Date / Time No Known Allergies Allergy Verified 07/23/23 06:40 Review of Systems Review of Systems: CONSTITUTIONAL: Denies fever, chills, or sweats. CARDIOVASCULAR: Denies chest pain. RESPIRATORY: Denies dyspnea. GASTROINTESTINAL: See HPI. GENITOURINARY: Denies dysuria or hematuria. MUSCULOSKELETAL: See HPI. NEUROLOGIC: Denies headache, numbness, or weakness. All systems reviewed & are unremarkable except as noted in HPI and below [facility] Past Medical History Medical History (Updated 07/29/23 @ 00:00 by Liam Le) Asthma Surgical History Surgical History Surgical history unknown Family History Family History Other No active medical problems Social History Social History Smoking status: Current every day smoker Alcohol intake: current Alcohol use details: Drinks more than socially Gender identity (if verbalized by the patient): Male Exam Narrative: GENERAL: Appears older than stated age, well-nourished, non-toxic, in no acute distress. HEAD: Normocephalic, atraumatic. NECK: Supple. No adenopathy, no masses. RESPIRATORY: Airway patent, respirations nonlabored. Coarse lung sounds bilaterally, occasional expiratory wheezing. No distress. CARDIOVASCULAR: Regular rate and rhythm without murmurs, rubs, or gallops. Radial pulses 2+ and equal bilaterally. ABDOMINAL: Soft, mild tenderness throughout left lower and lateral abdomen, nondistended, no hepatosplenomegaly. Normoactive BS. Positive CVA tenderness on left. MUSCULOSKELETAL: Moves all extremities. Strength/ROM intact without gross deformities. SKIN: Warm, dry, normal color. No rashes. NEURO: A&O X3. Speech clear. Cranial nerves II-XII grossly intact. Steady gait. No ataxic movements. PSYCHIATRIC: Appropriate mood and affect. Normal interaction. Course Vital Signs Vital signs: Vital Signs Pulse Rate 97 07/28/23 20:37 Respiratory Rate 17 07/28/23 20:37 Blood Pressure 162/100 H 07/28/23 20:37 Pulse Oximetry 97 07/28/23 20:37 Temperature 98.1 F 07/28/23 21:39 Pulse Rate 80 07/28/23 23:01 Respiratory Rate 17 07/28/23 23:01 Blood Pressure 170/100 H 07/28/23 23:01 Pulse Oximetry 100 07/28/23 23:01 MDM - Male Genitourinary MDM Narrative Medical decision making narrative: Patient presented to ED with left-sided abdominal pain, recently diagnosed with left distal ureteral stone which he believes he has since passed. No other significant associated symptoms at this time. Fluids and pain medication ordered. CBC with leukocytosis of 12.3. Per records, patient's white blood cell count was within normal range on 07/23. Creatinine today 1.1. Slightly increased from 0.9 on 07/23. Flu
[2023-07-28 20:16] LABS: Alanine Aminotransferase 123 U/L (6-50); Albumin Level 4.3 g/dL (3.5-5.1); Alkaline Phosphatase 135 U/L (38-126); Anion Gap 11 mmol/L (8-16); Aspartate Amino Transferase 84 U/L (17-59); Bilirubin,Total 0.6 mg/dL (0.2-1.3); Blood Urea Nitrogen 11 mg/dL (9-20); Calcium 8.2 mg/dL (8.4-10.2); Carbon Dioxide 22 mmol/L (22-30); Chloride 102 mmol/L (98-107); Estimated Glomerular Filt Rate > 60; Glucose 81 mg/dL (65-110); Potassium 3.8 mmol/L (3.4-5.0); Sodium 135 mmol/L (137-145)
[2023-07-28] MEDS: MORPHINE SULFATE (*CRX) 4 MG/ML INJ IV PUSH (20:25)
[2023-07-28] MEDS: SODIUM CHLORIDE 0.9% IV 1,000 ML 999 ML IV CONT ×2 (20:25→21:54)
[2023-07-28] MEDS: ONDANSETRON INJ 4 MG/2 ML VIAL IV PUSH (20:25)
[2023-07-28 20:37] VITALS: BP 162/100; PULSE 97; RESP 17; O2SAT 97
[2023-07-28 21:01] VITALS: BP 173/105
--- NOTE | 2023-07-28 21:16 | PC.NURSE ---
Patient taken to CT via w/c at this time.
[2023-07-28 21:39] VITALS: TEMP 36.7; O2SAT 97
[2023-07-28 22:09] LABS: Appearance Urine Cloudy (Clear); Bacteria Urine None Seen /hpf; Bilirubin Urine Negative (Negative); Blood Urine 1+ (Negative); Color Urine Yellow (Yellow); Glucose Urine UA Negative (Negative); Ketones Urine 2+ mg/dL (Negative); Leukocyte Esterase Ur Trace LEU/UL (Negative); Need Manual Microscopic Reviewed; Nitrate Urine Negative (Negative); Non Pathogenic Casts 0-2; Protein Urine Trace mg/dL (Negative); Squamous Epithelial Cell Urine None seen /hpf (Few); WBC Urine 21-50 /hpf; pH Urine 5.5 (5.0-9.0)
[2023-07-28 22:11] LABS: Add Urine Microscopic? YES; Specific Grav Ur 1.036 (1.001-1.035)
[2023-07-28 23:01] VITALS: BP 170/100; PULSE 80; RESP 17; O2SAT 100
[2023-07-28] MEDS: levoFLOXacin 750 MG TABLET PO (23:03)
[2023-07-28] MEDS: KETOROLAC 15 MG/ML VIAL (*BKC) IV PUSH (23:03)
== END 2023-07-28 23:10 | disposition home or self-care (01) ==
PROVIDERS: Emergency Provider Physician Assistant
DX: N13.9 Obstructive and reflux uropathy, unspecified (principal); N20.1 Calculus of ureter; R82.998 Other abnormal findings in urine; J45.909 Unspecified asthma, uncomplicated; F17.200 Nicotine dependence, unspecified, uncomplicated; K76.0 Fatty (change of) liver, not elsewhere classified; R93.41 Abnormal radiologic findings on diagnostic imaging of renal pelvis, ureter, or bladder
CPT/HCPCS: 36415; 74176; 80053; 81001; 85025; 87086; 96361; 96374; 96375; 99284; A9270; J1885; J2270; J2405; J7030

== ENCOUNTER 2023-11-29 11:41 | Emergency (ER) | payer OTHER, SELFPAY ==
[2023-11-29 11:49] VITALS: BP 149/97; PULSE 108; RESP 18; TEMP 36.4; O2SAT 100
--- NOTE | 2023-11-29 11:49 | ED.GENADULT ---
HPI - General Adult General Chief complaint: Upper Respiratory Infection Stated complaint: Cough, Chest Pain, Sore Throat Source: patient, RN notes reviewed and old records reviewed Mode of arrival: ambulatory Limitations: no limitations History of Present Illness HPI narrative: 43-year-old male patient presents to [facility] with complaints of cough, chest congestion that started on Sunday. Patient states has history of asthma patient using albuterol inhaler, and albuterol nebulizer. Patient denies shortness of breath, fever, body aches, nasal congestion. Patient states has Advair inhaler but he does not take because of the taste. MD complaint: cough Onset (ago): day(s) (3-4) Related Data Home Medications Medication Instructions Recorded Confirmed albuterol sulfate 90 mcg/actuation inhalation 01/13/21 aerosol inhaler Allergies Allergy/AdvReac Type Severity Reaction Status Date / Time No Known Allergies Allergy Verified 07/23/23 06:40 Review of Systems Constitutional: Constitutional: Reports no additional constitutional complaints, Denies body ache(s), Denies chills, Denies fatigue, Denies fever(s) and Denies headache(s) Eyes: Eyes: Reports no additional eye complaints and Denies blurry vision ENT: Reports system reviewed and no additional complaints, except as documented, Denies vertigo, Denies dizziness, Denies ear discharge, Denies otalgia, Denies facial pain, Denies headache(s), Denies nasal congestion, Denies nasal discharge, Denies sinus pain, Denies sinus pressure and Denies sore throat Cardiovascular: Cardiovascular: Reports no additional cardiovascular complaints, Denies chest pain, Denies chest pain at rest, Denies rapid heart rate and Denies dyspnea Respiratory: Respiratory: Reports no additional respiratory complaints, Reports chest congestion, Reports cough, Denies pain on inspiration, Denies pain with cough and Denies dyspnea Gastrointestinal: Gastrointestinal: Denies abdominal pain, Denies diarrhea, Denies nausea and Denies vomiting Integumentary/Breasts: Skin/Breast: Denies rash Neurologic: Reports system reviewed and no additional complaints, except as documented, Denies vertigo, Denies dizziness and Denies headache(s) Endocrine: Endocrine: Denies fatigue [facility] Past Medical History Medical History (Updated 11/29/23 @ 12:04 by Mary Alice Diop APRN) Asthma Surgical History Surgical History Surgical history unknown Family History Family History Other No active medical problems Social History Social History Smoking status: Current every day smoker Alcohol intake: current Alcohol use details: Drinks more than socially Gender identity (if verbalized by the patient): Male Comments At the time of my signature, I reviewed and agree with the nursing past medical, surgical, social, and family history. There is no relevant family history pertinent to the patient complaint. Exam Const: General: cooperative, healthy appearing, no acute distress and well nourished Nutritional Appearance: well nourished Orientation/consciousness: patient oriented x3 Limitations: no limitations HENMT: Head: normal to inspection and normocephalic Ears: external ears normal, TM's normal bilaterally, mastoids normal and Abnormal EAC present Face/Nose/Sinus: normal facial exam Face and sinus: normal facial exam Mouth: Yes Normal oral and palatal mucosa present, Yes oropharynx normal and Yes moist mucous membranes Throat: tonsils normal, uvula midline, posterior oropharynx abnormal and no uvular edema Eyes: General: appearance normal, both eyes and all related structures Sclera: sclerae normal Pupils: Equal, round and reactive pupils present Resp: Effort & Inspection: normal respiratory effort, able to speak in complete senten
== END 2023-11-29 12:16 | disposition home or self-care (01) ==
PROVIDERS: Emergency Provider Registered Nurse
DX: J45.21 Mild intermittent asthma with (acute) exacerbation (principal); F17.200 Nicotine dependence, unspecified, uncomplicated
CPT/HCPCS: 87426; 87804; 99213; G0463

== ENCOUNTER 2023-12-04 16:16 | Emergency (ER) | payer OTHER, SELFPAY ==
--- NOTE | ~2023-12-04 | CT_ITS ---
EXAMINATION: CT lumbar spine wo con DATE: 12/04/2023 17:33 INDICATION: low back pain, bilateral lower extremity pain . TECHNIQUE: Computed tomography (CT) of the lumbar spine was performed without intravenous contrast. A utomated exposure control and iterative reconstruction technique were employed. The dose-length produ ct was 1361.89 mGy-cm. COMPARISON: CT abdomen and pelvis 07/28/2023. FINDINGS: 4 nonrib-bearing lumbar-type vertebral bodies, with sacralization of L5. Pedicles intact. N ormal vertebral body alignment. Vertebral body heights preserved. Multilevel mild degenerative disc d isease and facet arthropathy. No severe central canal or neural foraminal narrowing. 8 mm nonobstruct ing left lower pole nephrolith. Fatty infiltration in the liver. IMPRESSION: No acute fracture or traumatic malalignment in the lumbar spine. Hepatic steatosis. Left nephrolithiasis. Reviewed, dictated and finalized at location K. [employer]
[2023-12-04 16:37] VITALS: BP 152/87; PULSE 108; RESP 20; TEMP 36.8; O2SAT 100
--- NOTE | 2023-12-04 17:10 | ED.GENADULT ---
HPI - General Adult General Chief complaint: Extremity Injury, Lower <DARREN Mascorro Last Filed: 12/04/23 18:11> Stated complaint: bilateral knee pain, back pain <Modesto Rodgers PA-C - Last Filed: 12/04/23 18:11> Time Seen by Provider: 12/04/23 17:00 <Modesto Rodgers PA-C - Last Filed: 12/04/23 18:11> Focused HPI: This is a 43-year-old male who presents to the ED with chief complaint of multiple joint pains beginning today. Reports this morning around 1:00 a.m. he woke up with bilateral knee pain. He then started to have bilateral ankle pain this morning. This afternoon he started to developed lower back pain and stiffness. States he had a chest cold last week but otherwise has been feeling all right. Denies fevers, chills, nausea, vomiting, chronic steroid use or immunosuppressive condition. Denies IV drug use. States the area is tender these pain worsens whenever he is walking or standing. Denies numbness or weakness. GENERAL: Well-appearing, well-nourished, and in no acute distress. HEAD: Normocephalic, atraumatic. CHEST: Clear to auscultation. No respiratory distress. HEART: Regular rate and rhythm. NEURO: Alert and oriented x3. Patient screened in triage and initial orders placed. Additional care and disposition to be based upon diagnostic testing and treatment. <Modesto Rodgers PA-C - Last Filed: 12/04/23 18:11> Source: patient <DARREN Mascorro Last Filed: 12/04/23 18:11> Mode of arrival: ambulatory <DARREN Mascorro Last Filed: 12/04/23 18:11> Limitations: no limitations <DARREN Mascorro Last Filed: 12/04/23 18:11> Related Data Home medications: Home Medications Medication Instructions Recorded Confirmed albuterol sulfate 90 mcg/actuation inhalation 01/13/21 aerosol inhaler <DARREN Mascorro Last Filed: 12/04/23 18:11> Allergies/adverse reactions: Allergies Allergy/AdvReac Type Severity Reaction Status Date / Time No Known Allergies Allergy Verified 12/04/23 16:42 <Modesto Rodgers PA-C - Last Filed: 12/04/23 18:11> Review of Systems Review of Systems: All systems reviewed & are unremarkable except as noted in HPI and below <Vannessa Beltran MD - Last Filed: 12/09/23 12:08> [facility] Past Medical History Medical History: Medical History (Updated 12/05/23 @ 00:02 by Liam Le) Asthma <Modesto Rodgers PA-C - Last Filed: 12/04/23 18:11> Surgical History Surgical History: Surgical History Surgical history unknown <Modesto Rodgers PA-C - Last Filed: 12/04/23 18:11> Family History Family History: Family History Other No active medical problems <Modesto Rodgers PA-C - Last Filed: 12/04/23 18:11> Social History Social History: Social History Smoking status: Current every day smoker Alcohol intake: current Alcohol use details: Drinks more than socially Gender identity (if verbalized by the patient): Male <Modesto Rodgers PA-C - Last Filed: 12/04/23 18:11> Exam Narrative: GENERAL: nontoxic, intermittently agitated 2/2 pain HEAD: Normocephalic, atraumatic. EYES: PERRLA and EOMI. ENT: Nares clear, no rhinorrhea or epistaxis. Mucous membranes moist. NECK/BACK: Supple. no midline tenderness CHEST: No respiratory distress. HEART: Regular rate and rhythm. EXTREMITIES: Normal range of motion. no swelling or erythema or tenderness of knee or ankle joints, ambulating w/o difficulty SKIN: Warm, dry, no rash. NEURO: No focal deficits. Alert and oriented x3. PSYCH: Normal mood and affect. <Vannessa Beltran MD - Last Filed: 12/09/23 12:08> Course Vital Signs Vital signs: Vital Signs Temperature 98.3 F 12/04/23 16:37 Pulse Rate 108 H 12/04/23 16:37 Respiratory Rate
[2023-12-04 17:26] LABS: Hematocrit 39.4 % (42.0-52.0); Hemoglobin 13.5 g/dL (14.0-18.0); Mean Corpuscular HGB Conc 34.3 g/dl (32-36); Mean Corpuscular Hemoglobin 35.1 pg (26-34); Mean Corpuscular Volume 102.3 fl (80-100); Mean Platelet Volume 9.2 fl (7.4-10.4); Platelet Count Result 365 k/mm3 (150-375); Red Blood Count 3.85 M/mm3 (4.6-6.20); Red Cell Distribution Width 14.7 % (11.5-14.5); White Blood Count 13.3 K/mm3 (4.5-10.0)
[2023-12-04 17:36] LABS: Alanine Aminotransferase 315 U/L (6-50); Alkaline Phosphatase 142 U/L (38-126); Anion Gap 8 mmol/L (8-16); Aspartate Amino Transferase 372 U/L (17-59); Bilirubin,Total 0.5 mg/dL (0.2-1.3); Blood Urea Nitrogen 11 mg/dL (9-20); Calcium 9.3 mg/dL (8.4-10.2); Carbon Dioxide 27 mmol/L (22-30); Chloride 101 mmol/L (98-107); Estimated CRCL calculation 136 ml/min; Estimated Glomerular Filt Rate > 60; Glucose 129 mg/dL (65-110); Potassium 4.1 mmol/L (3.4-5.0); Sodium 136 mmol/L (137-145)
[2023-12-04 17:42] LABS: Band Neutrophils Percent 1 % (0-6); Lymphocytes Absolute Manual 1.86 K/mm3 (1.1-4.5); Lymphocytes Percent Manual 14 % (18-44); Metamyelocytes Percent 2 %; Monocytes Absolute Manual 0.53 K/mm3 (0.1-0.90); Monocytes Percent Manual 4 % (3-9); Myelocytes Percent 1 %; Neutrophils Percent Manual 78 % (46-73); Total Cells Counted 100
[2023-12-04 17:43] LABS: Anisocytosis 1+ (NORMAL); Platelet Estimate Adequate (Adequate)
[2023-12-04 17:44] LABS: Schistocytes None Seen (NORMAL); Stomatocytes 1+ (NORMAL)
[2023-12-04 18:48] LABS: Erythrocyte Sedimentation Rate 16 mm/hr (0-20)
[2023-12-04] MEDS: oxyCODONE/ACETAMINOPHEN (*CRX) 5-325 MG TABLET 1 TABLET PO (20:14)
[2023-12-04] MEDS: KETOROLAC 30 MG/ML VIAL (*BKC) IM (20:15)
== END 2023-12-04 22:00 | disposition home or self-care (01) ==
PROVIDERS: Physician Assistant; Emergency Provider Emergency Medicine
DX: M54.50 Low back pain, unspecified (principal); M25.562 Pain in left knee; M25.561 Pain in right knee; J45.909 Unspecified asthma, uncomplicated
CPT/HCPCS: 36415; 72131; 80053; 85025; 85652; 96372; 99284; A9270; J1885

== ENCOUNTER 2023-12-12 16:50 | Emergency (ER) | payer OTHER, SELFPAY ==
--- NOTE | 2023-12-12 16:51 | ED.URI ---
HPI - URI/Sore Throat General Chief Complaint: Upper Respiratory Infection Stated Complaint: Sore Throat Time Seen by Provider: 12/12/23 16:51 Source: patient Mode of arrival: ambulatory Limitations: no limitations History of Present Illness HPI Narrative: Brandyn is a 43-year-old male patient presenting to the clinic today with complaints of a sore throat times 4-5 days. He reports his mouth is very dry and he feels as though his lymph nodes/neck is swollen. He denies any known fever or chills. Was seen a couple weeks ago for URI symptoms and given prednisone at that time. Denies any recent antibiotic use. MD elicited complaint: sore throat and nasal congestion Related Data Home Medications Medication Instructions Recorded Confirmed albuterol sulfate 90 mcg/actuation 2 puff inhalation PRN PRN 01/13/21 12/12/23 aerosol inhaler Shortness Of Breath Or Wheezing lisinopril 10 mg tablet 10 mg PO DAILY 12/12/23 12/12/23 omeprazole 20 mg capsule,delayed 20 mg PO DAILY 12/12/23 12/12/23 release rosuvastatin 5 mg tablet 5 mg PO DAILY 12/12/23 12/12/23 Allergies Allergy/AdvReac Type Severity Reaction Status Date / Time No Known Allergies Allergy Verified 12/12/23 17:04 Review of Systems Review of Systems: Pertinent positives per HPI. Patient denies any fever, chills, rash, headache, visual changes, dizziness, shortness of breath, chest pain, palpitations, nausea, vomiting, diarrhea, constipation, abdominal pain, or any urinary issues. [facility] Past Medical History Medical History (Updated 12/12/23 @ 17:18 by Homero Mac APRN) Asthma Surgical History Surgical History Surgical history unknown Family History Family History Other No active medical problems Social History Social History Smoking status: Current every day smoker Alcohol intake: current Alcohol use details: Drinks more than socially Gender identity (if verbalized by the patient): Male Comments At the time of my signature, I reviewed and agree with the nursing past medical, surgical, social, and family history. There is no relevant family history pertinent to the patient complaint. Exam Narrative: General: Well-developed, well nourished, in no apparent distress Head: Normocephalic, atraumatic Eyes: Pupils equally round and reactive to light bilaterally, EOM intact, sclera and conjunctive clear, no discharge, lids normal Ears: TMs intact and clear, ear canals clear, no drainage, grossly hearing normal. Nose: Nares patent, no discharge, no inflammation, no sinus tenderness. Mouth: Oral pharynx without lesions or masses, good dentition, MMM. Neck: Supple, trachea midline, no enlargement of anterior or posterior cervical nodes, no thyroid masses or goiter palpable. Cardio: Regular rate and rhythm, s1 and s2 normal, no murmur appreciated. Resp: Clear to auscultation bilaterally, no rhonchi, rales, wheezing or rubs Course Course Emergency Course: Portions of this record may have been created with voice recognition software. Level of Care: Express Care Visit Vital Signs Vital signs: Vital signs reviewed MDM - URI/Sore Throat MDM Narrative Medical decision making narrative: At the time of visit patient is resting comfortably on the exam table. Patient appears to be nontoxic. Supportive measures were discussed with the patient and they voiced understanding discharge instructions and agrees to treatment plan. Return precautions reviewed Differential Diagnosis Differential diagnosis: Likely upper respiratory infection, otitis media, sinusitis, viral infection, bronchitis, influenza, pharyngitis and other (COVID) Discharge Plan Discharge Clinical Impression: Pharyngitis Patient Disposition: Home, Self-Care Condition: Stable Instr
[2023-12-12 17:02] VITALS: BP 156/92; PULSE 105; RESP 20; TEMP 37.4; O2SAT 98
== END 2023-12-12 17:20 | disposition home or self-care (01) ==
PROVIDERS: Emergency Provider Nurse Practitioner Family; PCP Internal Medicine
DX: J02.9 Acute pharyngitis, unspecified (principal); Z20.822 Contact with and (suspected) exposure to COVID-19; J45.909 Unspecified asthma, uncomplicated
CPT/HCPCS: 87081; 87880; 99213; G0463

== ENCOUNTER 2024-07-28 11:22 | Emergency (ER) | payer OTHER, SELFPAY ==
[2024-07-28 11:35] VITALS: BP 152/91; PULSE 85; RESP 16; TEMP 36.6; O2SAT 96
--- NOTE | 2024-07-28 11:48 | ED.DENTAL ---
HPI - Dental/Oral General Chief complaint: Dental/Oral Stated complaint: tooth Pain Time Seen by Provider: 07/28/24 11:48 Source: patient, RN notes reviewed and old records reviewed Mode of arrival: ambulatory Limitations: no limitations History of Present Illness HPI Narrative: 44-year-old male presents to the [facility] with dental pain, swelling. Has a history of poor dentition, has not seen a dental provider in a long time. Patient is a smoker Location: Tooth # (13/14) Treatment prior to arrival: other (Motrin Tylenol) Related Data Home Medications Medication Instructions Recorded Confirmed albuterol sulfate 90 mcg/actuation 2 puff inhalation PRN PRN 01/13/21 07/28/24 aerosol inhaler Shortness Of Breath Or Wheezing omeprazole 20 mg capsule,delayed 20 mg PO DAILY 12/12/23 07/28/24 release rosuvastatin 5 mg tablet 5 mg PO DAILY 12/12/23 07/28/24 allopurinol 300 mg tablet 300 mg PO DAILY 07/28/24 07/28/24 losartan 25 mg tablet 25 mg PO DAILY 07/28/24 07/28/24 nadolol 40 mg tablet 40 mg PO DAILY 07/28/24 07/28/24 Allergies Allergy/AdvReac Type Severity Reaction Status Date / Time No Known Allergies Allergy Verified 07/28/24 11:49 Review of Systems Review of Systems: All systems reviewed & are unremarkable except as noted in HPI and below Constitutional: Constitutional: Reports no additional constitutional complaints Eyes: Eyes: Reports no additional eye complaints ENT: Reports as per HPI and Reports dental pain Cardiovascular: Cardiovascular: Reports no additional cardiovascular complaints, Denies chest pain and Denies dyspnea Respiratory: Respiratory: Reports no additional respiratory complaints, Denies chest congestion, Denies cough and Denies dyspnea Gastrointestinal: Gastrointestinal: Reports no additional gastrointestinal complaints, Denies abdominal pain, Denies nausea and Denies vomiting Musculoskeletal: Musculoskeletal: Reports no additional musculoskeletal complaints Integumentary/Breasts: Skin/Breast: Reports system reviewed and no additional complaints, except as docu Neurologic: Reports system reviewed and no additional complaints, except as documented Psychiatric: Psychiatric: Reports no additional psychiatric complaints Allergic/Immunologic: Allergic/Immunologic: Reports no additional allergic/immunologic complaints PMFSH Past Medical History Medical History Asthma Surgical History Surgical History Surgical history unknown Family History Family History Other No active medical problems Social History Social History Smoking status: Current every day smoker Alcohol intake: current Alcohol use details: Drinks more than socially Gender identity (if verbalized by the patient): Male Comments At the time of my signature, I reviewed and agree with the nursing past medical, surgical, social, and family history. There is no relevant family history pertinent to the patient complaint. Exam Const: General: cooperative, healthy appearing, comfortable, no acute distress, well developed, alert and well nourished Nutritional Appearance: well nourished Orientation/consciousness: patient oriented x3 Limitations: no limitations HENMT: Head: normal to inspection Ears: hearing grossly normal bilaterally and external ears normal Face/Nose/Sinus: Normal external nose present, Normal nares present, Normal nasal mucous membranes and turbinates present, normal facial exam and face symmetric Face and sinus: normal facial exam and face symmetric Mouth: Yes Normal oral and palatal mucosa present, Yes lip normal and Yes tongue normal Teeth and gingiva: caries, gingiva abnormal hypertrophic, edematous and tender and poor dentition Eyes: General: appearance normal, both eyes
== END 2024-07-28 12:06 | disposition home or self-care (01) ==
PROVIDERS: Emergency Provider Nurse Practitioner; PCP Internal Medicine
DX: K02.9 Dental caries, unspecified (principal); K04.7 Periapical abscess without sinus; F17.200 Nicotine dependence, unspecified, uncomplicated; J45.909 Unspecified asthma, uncomplicated
CPT/HCPCS: 99213; G0463